=== PATIENT | male | born 1970 | race Caucasian/White ===

== ENCOUNTER 2019-12-02 19:10 | Emergency (ER) | payer MEDICARE ==
[~2019-12-02] VITALS: Ht 175.3 cm; Wt 81.7 kg
[2019-12-02 19:40] LABS: ABSOLUTE BASOPHILS 0.1 thou/uL (0.0-0.2); ABSOLUTE EOSINOPHILS 0.2 thou/uL (0.0-0.7); ABSOLUTE LYMPHOCYTES 2.2 thou/uL (0.8-5.3); ABSOLUTE MONOCYTES 0.5 thou/uL (0.0-1.2); ABSOLUTE NEUTROPHILS 2.8 thou/uL (1.6-8.1); EOSINOPHILS 3.4 %; HEMATOCRIT 44.1 % (42.0-52.0); HEMOGLOBIN 15.5 gm/dL (14.0-18.0); LYMPHOCYTES 38.3 %; MCH 33.6 pg (26.0-34.0); MCHC 35.1 g/dL (28.0-37.0); MCV 95.5 fL (80.0-100.0); MONOCYTES 8.4 %; MPV 7.2 fl. (7.2-11.1); NUCLEATED RBCS 0 /100WBC; PLATELET COUNT* 311 thou/uL (150-400); POLYS 48.9 %; RBC 4.62 mil/uL (4.50-6.00); RDW-CV 13.4 % (10.5-14.5); WBC 5.7 thou/uL (4.0-11.0)
[2019-12-02 19:54] LABS: CALCIUM 8.6 mg/dL (8.5-10.1); CREATININE 1.1 mg/dL (0.6-1.3); POTASSIUM 3.6 mmol/L (3.5-5.1)
[2019-12-02 20:00] LABS: APTT 27.9 Seconds (25.0-31.3); PROTIME 10.5 Seconds (9.20-11.50)
[2019-12-02 20:12] LABS: ALBUMIN 3.8 g/dL (3.4-5.0); CK-MB MASS 2.1 ng/mL (<0.5-3.6); MAGNESIUM 1.8 mg/dL (1.8-2.4); TOTAL BILIRUBIN 0.3 mg/dL (<0.1-1.0); TOTAL PROTEIN 7.6 g/dL (6.4-8.2)
[2019-12-02 20:25] VITALS: BP 124/88
--- NOTE | 2019-12-03 15:01 | EKG ---
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1970 Requested By: Juan Carlos Segundo Order Number: [id number] MD: Hitesh Herrmann Measurements Intervals [place] Rate: 76 P: 43 [place]: 137 QRS: 40 QRSD: 93 T: 10 QT: 356 QTc: 401 Interpretive Statements Sinus rhythm Minimal ST elevation, anterior leads No previous ECG available for comparison Electronically Signed On 12-03-2019 15:00:47 MANAGER [employer]OND[employer] by Hitesh Herrmann [email or web address] <ELECTRONICALLY SIGNED> By: Hitesh Herrmann MD, [facility] 12/03/19 1500 1918 17 Hitesh Herrmann MD, FACC /EPI
== END 2019-12-02 20:26 | disposition home or self-care (01) ==
LOC: M.ERS 19:10
PROVIDERS: Family Medicine
DX: R07.89 Other chest pain (principal)

== ENCOUNTER 2019-12-09 20:55 | Observation (INO) | payer MEDICARE ==
[~2019-12-09] VITALS: Ht 175.3 cm; Wt 81.6 kg
[2019-12-09 21:05] VITALS: BP 115/67
[2019-12-09 21:35] LABS: INFLUENZA A ANTIGEN Negative (Negative); INFLUENZA B ANTIGEN Negative (Negative)
[2019-12-09 22:17] LABS: ABSOLUTE LYMPHOCYTES 1.2 thou/uL (0.8-5.3); ABSOLUTE MONOCYTES 0.6 thou/uL (0.0-1.2); ABSOLUTE NEUTROPHILS 2.1 thou/uL (1.6-8.1); BASOPHILS 0.5 %; EOSINOPHILS 0.3 %; HEMATOCRIT 46.9 % (42.0-52.0); HEMOGLOBIN 16.7 gm/dL (14.0-18.0); LYMPHOCYTES 29.3 %; MCH 33.7 pg (26.0-34.0); MCHC 35.7 g/dL (28.0-37.0); MCV 94.5 fL (80.0-100.0); MONOCYTES 15.1 %; MPV 6.9 fl. (7.2-11.1); NUCLEATED RBCS 0 /100WBC; PLATELET COUNT* 225 thou/uL (150-400); POLYS 54.8 %; RBC 4.96 mil/uL (4.50-6.00); RDW-CV 13.4 % (10.5-14.5); WBC 3.9 thou/uL (4.0-11.0)
[2019-12-09 22:18] LABS: CALCIUM 8.4 mg/dL (8.5-10.1); CREATININE 1.1 mg/dL (0.6-1.3); POTASSIUM 3.2 mmol/L (3.5-5.1)
[2019-12-09 22:31] LABS: ALBUMIN 3.6 g/dL (3.4-5.0); TOTAL BILIRUBIN 0.3 mg/dL (<0.1-1.0); TOTAL PROTEIN 7.7 g/dL (6.4-8.2)
[2019-12-10 02:10] VITALS: BP 113/72
[2019-12-10 07:40] VITALS: BP 122/82
--- NOTE | 2019-12-10 10:23 | EKG ---
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
[2019-12-10] MEDS ORDERED: LEVAQUIN 750 M750 MG PO (11:33)
[2019-12-10] MEDS ORDERED: IBUPROFEN 600600 M1 PO (11:33)
[2019-12-10 12:24] VITALS: BP 122/82
[2019-12-11] MEDS ORDERED: AZITHROMYCIN 2250 MG PO (17:50)
[2019-12-11] MEDS ORDERED: ZOFRAN ODT4 MG PO (17:50)
== END 2019-12-10 14:06 | disposition home or self-care (01) ==
LOC: M.ERS 20:55 → M.TBA-ER 12-10 01:18 → M.3W 12-10 01:18
PROVIDERS: Nurse Practitioner Family; ADMIT Internal Medicine
DX: J06.9 Acute upper respiratory infection, unspecified (principal); R11.2 Nausea with vomiting, unspecified; R19.7 Diarrhea, unspecified; E86.0 Dehydration; R09.02 Hypoxemia

== ENCOUNTER 2019-12-11 15:27 | Emergency (ER) | payer MEDICARE ==
[~2019-12-11] VITALS: Ht 175.3 cm; Wt 81.7 kg
[~2019-12-11 15:27] MED LIST: IBUPROFEN 600600 M1 PO; LEVAQUIN 750 M750 MG PO
[2019-12-11 16:00] LABS: URINE BILIRUBIN NEGATIVE (Negative); URINE BLOOD NEGATIVE (Negative); URINE CLARITY CLEAR; URINE COLOR YELLOW; URINE GLUCOSE-RANDOM NEGATIVE (Negative); URINE KETONES NEGATIVE (Negative); URINE LEUKOCYTES NEGATIVE (Negative); URINE NITRITE NEGATIVE (Negative); URINE PROTEIN TRACE (Negative)
[2019-12-11 16:05] LABS: ABSOLUTE LYMPHOCYTES 0.8 thou/uL (0.8-5.3); ABSOLUTE MONOCYTES 0.6 thou/uL (0.0-1.2); ABSOLUTE NEUTROPHILS 2.8 thou/uL (1.6-8.1); BASOPHILS 0.9 %; EOSINOPHILS 0.1 %; HEMATOCRIT 44.1 % (42.0-52.0); HEMOGLOBIN 15.6 gm/dL (14.0-18.0); LYMPHOCYTES 17.9 %; MCH 33.3 pg (26.0-34.0); MCHC 35.3 g/dL (28.0-37.0); MCV 94.1 fL (80.0-100.0); NUCLEATED RBCS 0 /100WBC; PLATELET COUNT* 196 thou/uL (150-400); POLYS 66.1 %; RBC 4.68 mil/uL (4.50-6.00); RDW-CV 13.2 % (10.5-14.5); WBC 4.2 thou/uL (4.0-11.0)
[2019-12-11 16:29] LABS: CALCIUM 7.9 mg/dL (8.5-10.1); CREATININE 1.2 mg/dL (0.6-1.3); POTASSIUM 3.8 mmol/L (3.5-5.1)
[2019-12-11 16:42] LABS: ALBUMIN 3.5 g/dL (3.4-5.0); TOTAL BILIRUBIN 0.5 mg/dL (<0.1-1.0); TOTAL PROTEIN 7.3 g/dL (6.4-8.2)
[2019-12-11] MEDS ORDERED: ZOFRAN ODT4 MG PO (17:50)
[2019-12-11] MEDS ORDERED: AZITHROMYCIN 2250 MG PO (17:50)
[2019-12-11 18:08] VITALS: BP 122/89
--- NOTE | 2019-12-12 10:26 | EKG ---
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
== END 2019-12-11 18:09 | disposition home or self-care (01) ==
LOC: M.ERS 15:27
PROVIDERS: Physician Assistant
DX: M79.18 Myalgia, other site (principal); R11.2 Nausea with vomiting, unspecified; Z98.890 Other specified postprocedural states

== ENCOUNTER 2020-11-01 18:36 | Emergency (ER) | payer MEDICARE ==
[~2020-11-01] VITALS: Ht 180.3 cm; Wt 86.2 kg
[~2020-11-01 18:36] MED LIST changes: +AZITHROMYCIN 2250 MG PO; +ZOFRAN ODT4 MG PO
[2020-11-01 20:13] LABS: ABSOLUTE BASOPHILS 0.1 thou/uL (0.0-0.2); ABSOLUTE EOSINOPHILS 0.2 thou/uL (0.0-0.7); ABSOLUTE LYMPHOCYTES 1.5 thou/uL (0.8-5.3); ABSOLUTE MONOCYTES 0.5 thou/uL (0.0-1.2); BASOPHILS 0.9 %; EOSINOPHILS 2.8 %; HEMATOCRIT 50.1 % (42.0-52.0); HEMOGLOBIN 17.2 gm/dL (14.0-18.0); LYMPHOCYTES 20.3 %; MCH 33.5 pg (26.0-34.0); MCHC 34.4 g/dL (28.0-37.0); MCV 97.5 fL (80.0-100.0); MONOCYTES 6.8 %; MPV 6.8 fl. (7.2-11.1); NUCLEATED RBCS 0 /100WBC; PLATELET COUNT* 309 thou/uL (150-400); POLYS 69.2 %; RBC 5.13 mil/uL (4.50-6.00); RDW-CV 13.5 % (10.5-14.5); WBC 7.2 thou/uL (4.0-11.0)
[2020-11-01 20:23] LABS: CALCIUM 9.3 mg/dL (8.5-10.1); CREATININE 1.2 mg/dL (0.6-1.3); POTASSIUM 3.5 mmol/L (3.5-5.1)
[2020-11-01 20:34] LABS: ALBUMIN 4.3 g/dL (3.4-5.0); TOTAL BILIRUBIN 0.5 mg/dL (<0.1-1.0); TOTAL PROTEIN 8.7 g/dL (6.4-8.2)
[2020-11-01 21:00] VITALS: BP 151/100
--- NOTE | 2020-11-02 12:23 | EKG ---
[place] [address] ELECTROCARDIOGRAM REPORT Name: DUSTY HAMMOND Room: [facility]#: [id number] Admission: 11/01/20 Attend Phys: Discharge: 11/01/20 Date of : 72 Date of Service: 11/01/202002 Report #: [id number] THIS REPORT FOR: //name// 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[place] : 1970 Requested By: Chery Harvey Order Number: [id number] MD: Hitesh Herrmann Measurements Intervals [place] Rate: 92 P: 31 [place]: 136 QRS: 37 QRSD: 161 T: 10 QT: 334 QTc: 414 Interpretive Statements Sinus rhythm Nonspecific intraventricular conduction delay Compared to ECG 12/11/2019 15:53:18 Intraventricular conduction delay now present ST (T wave) deviation no longer present Electronically Signed On 11-02-2020 12:23:36 COUNTY ADMINISTRATOR by Hitesh Herrmann [email or web address] <ELECTRONICALLY SIGNED> By: Hitesh Herrmann MD, [facility] 11/02/20 1223 02 02 Hitesh Herrmann MD, [facility] /EPI
== END 2020-11-01 21:00 | disposition home or self-care (01) ==
LOC: M.ERS 18:36
PROVIDERS: Nurse Practitioner Family
DX: F41.9 Anxiety disorder, unspecified (principal); Z20.828 Contact with and (suspected) exposure to other viral communicable diseases; R51.9 Headache, unspecified; Z98.890 Other specified postprocedural states; Z79.899 Other long term (current) drug therapy

== ENCOUNTER 2021-05-04 17:06 | Emergency (ER) | payer MEDICARE ==
[~2021-05-04] VITALS: Ht 180.3 cm; Wt 86.2 kg
[2021-05-04] MEDS ORDERED: MELOXICAM7.5 MG PO (17:27)
[2021-05-04 17:31] LABS: URINE BILIRUBIN NEGATIVE (Negative); URINE BLOOD NEGATIVE (Negative); URINE CLARITY CLEAR; URINE COLOR YELLOW; URINE GLUCOSE-RANDOM NEGATIVE (Negative); URINE KETONES NEGATIVE (Negative); URINE LEUKOCYTES-REFLEX NEGATIVE (Negative); URINE NITRITE-REFLEX NEGATIVE (Negative); URINE PROTEIN NEGATIVE (Negative); URINE SPECIFIC GRAVITY 1.025 (1.005-1.030); URINE UROBILINOGEN 0.2 E.U./dl (0.2-1.0)
[2021-05-04 17:51] LABS: ABSOLUTE EOSINOPHILS 0.1 thou/uL (0.0-0.7); ABSOLUTE LYMPHOCYTES 1.2 thou/uL (0.8-5.3); ABSOLUTE MONOCYTES 0.5 thou/uL (0.0-1.2); BASOPHILS 0.4 %; EOSINOPHILS 1.8 %; HEMATOCRIT 45.6 % (42.0-52.0); HEMOGLOBIN 15.8 gm/dL (14.0-18.0); LYMPHOCYTES 15.6 %; MCH 33.6 pg (26.0-34.0); MCHC 34.7 g/dL (28.0-37.0); MCV 96.7 fL (80.0-100.0); MONOCYTES 6.1 %; MPV 6.7 fl. (7.2-11.1); NUCLEATED RBCS 0 /100WBC; PLATELET COUNT* 311 thou/uL (150-400); POLYS 76.1 %; RBC 4.71 mil/uL (4.50-6.00); WBC 7.8 thou/uL (4.0-11.0)
[2021-05-04 17:59] LABS: CALCIUM 8.7 mg/dL (8.5-10.1); CREATININE 1.1 mg/dL (0.6-1.3); POTASSIUM 3.6 mmol/L (3.5-5.1)
[2021-05-04 18:10] LABS: ALBUMIN 3.8 g/dL (3.4-5.0); TOTAL BILIRUBIN 0.2 mg/dL (<0.1-1.0); TOTAL PROTEIN 7.5 g/dL (6.4-8.2)
[2021-05-04 19:00] VITALS: BP 121/87
--- NOTE | 2021-05-05 11:49 | EKG ---
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[place] : 1970 Requested By: Juan Carlos Segundo Order Number: [id number] MD: Narciso Ibarra Measurements Intervals [place] Rate: 81 P: 47 MS: 136 QRS: 46 QRSD: 92 T: 1 QT: 356 QTc: 414 Interpretive Statements Sinus rhythm Compared to ECG 11/01/2020 20:03:26 Intraventricular conduction delay no longer present Electronically Signed On 05-05-2021 11:49:32 CDT by Narciso Ibarra [email or web address] <ELECTRONICALLY SIGNED> By: Narciso Ibarra MD, [facility] 05/05/21 1149 1755 1755 Narciso Ibarra MD, [facility] /EPI
== END 2021-05-04 19:01 | disposition home or self-care (01) ==
LOC: M.ERS 17:06
PROVIDERS: Family Medicine
DX: R42 Dizziness and giddiness (principal); M19.90 Unspecified osteoarthritis, unspecified site